=== PATIENT | male | born 1990 | race Caucasian/White ===

== ENCOUNTER 2021-12-30 16:53 | Emergency (ER) | payer SELFPAY ==
[~2021-12-30] VITALS: Ht 170.2 cm; Wt 115.0 kg
[2021-12-30 17:45] LABS: BASO # 0.1 x10^3/uL (0.0-0.2); BASO % 1 % (0-3); EOS # 0.2 x10^3/uL (0.0-0.7); EOS % 2 % (0-3); HEMOGLOBIN 14.2 g/dL (13.0-17.5); LYMPH # 2.8 x10^3/uL (1.0-4.8); LYMPH % 28 % (24-48); MEAN CORPUSCULAR HEMOGLOBIN 29 pg (25-35); MEAN CORPUSCULAR HGB CONC 34 g/dL (31-37); MEAN CORPUSCULAR VOLUME 86 fL (79-100); MONO # 0.9 x10^3/uL (0.0-1.1); MONO % 9 % (0-9); NEUT # 6.2 x10^3/uL (1.8-7.7); NEUT % 61 % (31-73); PLATELET COUNT 240 x10^3/uL (140-400); RED BLOOD COUNT 4.91 x10^6/uL (4.30-5.70); RED CELL DISTRIBUTION WIDTH 14.1 % (11.5-14.5); WHITE BLOOD COUNT 10.1 x10^3/uL (4.0-11.0)
[2021-12-30 17:52] LABS: CALCIUM 8.4 mg/dL (8.5-10.1); CREATININE 1.3 mg/dL (0.7-1.3); GFR 64.8; POTASSIUM 4.3 mmol/L (3.5-5.1)
[2021-12-30 17:58] LABS: ALBUMIN 3.5 g/dL (3.4-5.0); ALBUMIN/GLOBULIN RATIO 0.9 (1.0-1.7); TOTAL BILIRUBIN 0.4 mg/dL (0.2-1.0); TOTAL PROTEIN 7.2 g/dL (6.4-8.2)
[2021-12-30] MEDS ORDERED: CONTRAST GIVEN. MC PRN (18:00)
[2021-12-30] MEDS ORDERED: IOHEXOL 350 MG/ML 100 ML VIAL. IV ONE (18:00)
--- NOTE | 2021-12-30 18:03 | PHYS DOC ---
Past Medical History Past Medical History: Other Additional Past Medical Histor: drug addiction (sober since 2012) Past Surgical History: Other Additional Past Surgical Histo: small intestine repair s/p "tear" Smoking Status: Current Every Day Smoker Additional Information: 1/2 pack cigarettes/day Alcohol Use: Occasionally Drug Use: Methamphetamine General Adult EDM: Chief Complaint: CHEST PAIN-NON CARDIAC NATURE HPI: HPI: Patient is a 31-year-old male that presents today with hemoptysis. Patient states that he has had 2 episodes today where he has coughed up a large amount of clot and blood, and he comes in today for evaluation. He states that he is a smoker and does smoke less than a pack per day, he states that he has had chest pain on and off for the past 2 weeks, and he is also been experiencing a cough for a little over 2 weeks he says he has had some mild production with the cough, but he says he smokes and he figured it was due to that. 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 He denies swelling in his legs or shortness of breath or fever or chills. Patient states he has a history of hypertension and is supposed to be taking lisinopril but did not feel like that was helping him so he stopped it. Review of Systems: Review of Systems: Constitutional: Denies fever or chills. [] Eyes: Denies change in visual acuity. [] HENT: Denies nasal congestion or sore throat. [] Respiratory: Denies cough or shortness of breath. [] Cardiovascular: Denies chest pain or edema. [] GI: Denies abdominal pain, nausea, vomiting, bloody stools or diarrhea. [] : Denies dysuria. [] Musculoskeletal: Denies back pain or joint pain. [] Integument: Denies rash. [] Neurologic: Denies headache, focal weakness or sensory changes. [] Endocrine: Denies polyuria or polydipsia. [] Lymphatic: Denies swollen glands. [] Psychiatric: Denies depression or anxiety. [] Heart Score: C/O Chest Pain: N/A Risk Factors: Risk Factors: DM, Current or recent (<one month) smoker, HTN, HLP, family hi story of CAD, obesity. Risk Scores: Score 0 - 3: 2.5% MACE over next 6 weeks - Discharge Home Score 4 - 6: 20.3% MACE over next 6 weeks - Admit for Clinical Observation Score 7 - 10: 72.7% MACE over next 6 weeks - Early Invasive Strategies Current Medications: Current Medications Medications (Trade) Dose Ordered Sig/Leonarda Start Time Stop Time Status Last Admin Dose Admin Info (CONTRAST GIVEN -- Rx MONITORING) 1 each PRN DAILY PRN 12/30/21 18:00 01/01/22 17:59 Iohexol (Omnipaque 350 Mg/ml) 100 ml 1X ONCE 12/30/21 18:00 12/30/21 18:01 Allergies: Allergies: Allergies Coded Allergies Type Severity Reaction Last Updated Verified No Known Drug Allergies 12/30/21 No Physical Exam: PE: Constitutional: Well developed, well nourished, no acute distress, non-toxic appearance. [] HENT: Normocephalic, atraumatic, bilateral external ears normal, oropharynx moist, no oral exudates, nose normal. [] Eyes: PERRLA, EOMI, conjunctiva normal, no discharge. [] Neck: Normal range of motion, no tenderness, supple, no stridor. [] Cardiovascular:Heart rate regular rhythm, no murmur [] Lungs & Thorax: Bilateral breath sounds clear to auscultation [] Abdomen: Bowel sounds normal, soft, no tenderness, no masses, no pulsatile masses. [] Skin: Warm, dry, no erythema, no rash. [] Back: No tenderness, no CVA tenderness. [] Extremities: No tenderness, no cyanosis, no clubbing, ROM intact, no edema. [] Neurologic: Alert and oriented X 3, normal motor function, normal sensory function, no focal deficits noted. [] Psychologic: Affect normal, judgement normal, mood normal. [] Current Patient Data: Labs: Laboratory Tests Test 12/30/21 17:30 White Blood Count 10.1 x10^3/uL (4.0-11.0) Red Blood Count 4.91 x10^6/uL (4.30-5.70) Hemoglobin 14.2 g/dL (13.0-17.5) Hematocrit 42.0 % (39.0-53.0) Mean Corpuscular Volume 86 fL (79-100) Mean Corpuscular Hemoglobin 29 pg (25-35) Mean Corpuscular Hemoglobin Concent 34 g/dL (31-37) Red Cell Distribution Width 14.1 % (11.5-14.5) Platelet Count 240 x10^3/uL (140-400) Neutrophils (%) (Auto) 61 % (31-73) Lymphocytes (%) (Auto) 28 % (24-48) Monocytes (%) (Auto) 9 % (0-9) Eosinophils (%) (Auto) 2 % (0-3) Basophils (%) (Auto) 1 % (0-3) Neutrophils # (Auto) 6.2 x10^3/uL (1.8-7.7) Lymphocytes # (Auto) 2.8 x10^3/uL (1.0-4.8) Monocytes # (Auto) 0.9 x10^3/uL (0.0-1.1) Eosinophils # (Auto) 0.2 x10^3/uL (0.0-0.7) Basophils # (Auto) 0.1 x10^3/uL (0.0-0.2) Sodium Level 139 mmol/L (136-145) Potassium Level 4.3 mmol/L (3.5-5.1) Chloride Level 105 mmol/L (98-107) Carbon Dioxide Level 28 mmol/L (21-32) Anion Gap 6 (6-14) Blood Urea Nitrogen 22 mg/dL (8-26) Creatinine 1.3 mg/dL (0.7-1.3) Estimated GFR (Cockcroft-Gault) 64.8 BUN/Creatinine Ratio 17 (6-20) Glucose Level 90 mg/dL (70-99) Calcium Level 8.4 mg/dL (8.5-10.1) L Total Bilirubin Pending Aspartate Amino Transferase (AST) Pending Alanine Aminotransferase (ALT) Pending Alkaline Phosphatase Pending Total Protein Pending Albumin Pending Albumin/Globulin Ratio Pending Laboratory Tests 12/30/21 17:30 Laboratory Tests 12/30/21 17:30 Vital Signs: Vital Signs Date Time Temp Pulse Resp B/P (MAP) Pulse Ox O2 Delivery O2 Flow Rate FiO2 12/30/21 18:58 86 18 180/99 (126) 99 Room Air 12/30/21 17:04 98.3 83 20 175/100 (125) 99 Room Air 98.3 Vital Signs Date Time Temp Pulse Resp B/P (MAP) Pulse Ox O2 Delivery O2 Flow Rate FiO2 12/30/21 17:04 98.3 83 20 175/100 (125) 99 Room Air 98.3 EKG: EKG: EKG done at [address] Metcalf at 1714 shows sinus rhythm with no ectopy at a rate of 76 with a ME interval of 154 ms with a QTC of 398 ms no STEMI [] Radiology/Procedures: Radiology/Procedures: REASON: HEMOPTYSIS PROCEDURE: CT ANGIOGRAPHY CHEST Examination: CT angiogram of the chest with IV contrast HISTORY: History of hemoptysis COMPARISON: None available Technique: Axial CT angiographic images of chest were performed with IV contrast. Coronal and sagittal 3-D MIP reformats are performed Exposure: One or more of the following individualized dose reduction techniques were utilized for this examination: 1. Automated exposure control 2. Adjustment of the mA and/or kV according to patient size 3. Use of iterative reconstruction technique FINDINGS: The visualized thyroid gland grossly appears unremarkable. Central airways are patent. Heart size grossly appears unremarkable. The caliber of the aorta gross ly appears unremarkable. There is no evidence of filling defect identified in the main pulmonary arterial trunk and right and left main pulmonary arteries and the visualized lobar, segmental branches of the pulmonary arteries. The lungs are clear. The liver, spleen, grossly appears unremarkable Mild degenerative changes thoracic spine. IMPRESSION: 1. No evidence of pulmonary embolism. 2. The lungs are clear. Electronically signed by: Jameson Zimmerman MD (12/30/2021 6:19 PM) [id number][] Course & Med Decision Making: Course & Med Decision Making Pertinent Labs and Imaging studies reviewed. (See chart for details) 1829 reassessment shows patient in no acute distress oxygen saturation is 100% with a heart rate of 77. When asked patient about how much blood he has coughed up he states that his first clot was approximately the size of a silver dollar, and he the 2 that followed with a size of a quarter, he said that happened around 1230-homar today he has not had any more episodes today, he denies nausea and vomiting and he says he has not vomited at all today. Patient states he does have a history of nosebleeds in the past but he has not had one in quite some time. 0 did discuss the plan of care with patient patient feels comfortable going home and following up with his primary care physician Dr. Saeed tomorrow by phone for further evaluation of this and management of your hypertension. Patient is encouraged to return to the emergency department if he has increased coughing up blood, vomiting blood, any increased work of breathing, chest pain that is constant, or any other concerns he may have. Patient verbalized understanding of this. Patient was also advised to quit smoking this would also help his symptoms. Dragon Disclaimer: Dragon Disclaimer: This electronic medical record was generated, in whole or in part, using a voice recognition dictation system. Departure Departure Impression: Primary Impression: Hemoptysis Disposition: HOME / SELF CARE / HOMELESS Condition: STABLE Referrals: NO PCP (PCP) Patient Instructions: Hemoptysis, Smoking Cessation Additional Instructions: Stop smoking Cool-mist humidifier to help with humidity and your house and in your bedroom Follow-up with your primary care physician Dr. Saeed in the a.m. for further management of this your elevated blood pressure. Return to the emergency department for increased coughing up blood, any vomiting blood, any increased work of breathing, or any constant chest pain. SHARAD QUILES APRN Dec 30, 2021 18:03
--- NOTE | 2021-12-30 18:21 | RAD ---
Examination: CT angiogram of the chest with IV contrast HISTORY: History of hemoptysis COMPARISON: None available Technique: Axial CT angiographic images of chest were performed with IV contrast. Coronal and sagitta l 3-D MIP reformats are performed Exposure: One or more of the following individualized dose reduction techniques were utilized for thi s examination: 1. Automated exposure control 2. Adjustment of the mA and/or kV according to patient size 3. Use of iterative reconstruction technique FINDINGS: The visualized thyroid gland grossly appears unremarkable. Central airways are patent. Heart size gr ossly appears unremarkable. The caliber of the aorta grossly appears unremarkable. There is no eviden ce of filling defect identified in the main pulmonary arterial trunk and right and left main pulmonar y arteries and the visualized lobar, segmental branches of the pulmonary arteries. The lungs are katrin r. The liver, spleen, grossly appears unremarkable Mild degenerative changes thoracic spine. IMPRESSION: 1. No evidence of pulmonary embolism. 2. The lungs are clear. Electronically signed by: Jameson Zimmerman MD (12/30/2021 6:19 PM) [id number]
[2021-12-30 18:58] VITALS: BP 180/99
[2021-12-30] MEDS ORDERED: IOHEXOL 350 MG/ML 100 ML VIAL. ONE (22:10)
--- NOTE | 2021-12-31 07:37 | EKG ---
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
== END 2021-12-30 19:14 | disposition home or self-care (01) ==
LOC: ER 16:53
DX: R04.2 Hemoptysis (principal); R07.89 Other chest pain; R05.9 Cough, unspecified; I10 Essential (primary) hypertension; F17.210 Nicotine dependence, cigarettes, uncomplicated
CPT/HCPCS: 36415; 71275; 80053; 84484; 85025; 85610; 85730; 93005; 99285; Q9967